=== PATIENT | female | born 1965 | race African-American/Black ===

== ENCOUNTER 2020-02-11 15:25 | Emergency (ER) | payer BC, SELFPAY ==
--- NOTE | ~2020-02-11 | XR_ITS ---
EXAMINATION: XR ankle RT min 3V DATE: 02/11/2020 15:51 INDICATION: Right ankle injury and swelling. TECHNIQUE: 4 views of right ankle were obtained. COMPARISON: None. FINDINGS: There is an oblique fracture of distal fibula with anteromedial aspect of the fracture line at the level of the tibial plafond. The distal fracture fragment demonstrates 2 mm posterolateral di splacement. Joint spaces are normal. There are enthesophytes at the posterior and plantar aspects of calcaneal tuberosity. There is ankle soft tissue swelling. IMPRESSION: 1. Oblique fracture of distal fibula. Reviewed, dictated and finalized at location A. LIER MANAGER
[2020-02-11 15:52] VITALS: BP 131/70; PULSE 64; RESP 16; TEMP 36.4; O2SAT 99
--- NOTE | 2020-02-11 15:58 | ED.LOWEXIN ---
HPI - Extremity Injury (Lower) General Chief Complaint: Extremity Injury, Lower Stated Complaint: right ankle pain Time Seen by Provider: 02/11/20 15:58 Source: patient and RN notes reviewed Mode of arrival: ambulatory Limitations: no limitations History of Present Illness HPI Narrative: 54 year old female [facility] with complaints of injury to her right ankle which occurred on Tuesday evening when she fell and landed on right ankle when she went roller skating. Patient states that she is having quite a bit of pain to her right lateral ankle, swelling and ecchymosis around entire ankle with swelling also to foot. Patient states that her pain is 9/10 is aching, burning and throbbing. Patient has strong pedal pulse to her right foot, foot is warm to touch. MD complaint: ankle injury Onset (ago): day(s) (3) Injury: Right: ankle (lateral) Type of Injury: other (twisted and fell) Place: other (skating rink) Severity: severe Severity scale (1-10): 9 Exacerbating factors: weight bearing and movement Context: fall Associated symptoms: swelling and able to partially bear weight Other symptoms: none Treatments prior to arrival: NSAIDS Related Data Allergies Allergy/AdvReac Type Severity Reaction Status Date / Time No Known Allergies Allergy Verified 02/11/20 15:53 Review of Systems Review of Systems: Narrative: CONSTITUTIONAL: Denies fever, chills, or sweats. EYES: Denies visual changes, redness, or discharge. ENT: Denies rhinorrhea, congestion, sore throat, or otalgia. CARDIOVASCULAR: Denies chest pain, palpitations, or edema. RESPIRATORY: Denies cough or dyspnea. GASTROINTESTINAL: Denies abdominal pain, nausea, vomiting, or diarrhea. GENITOURINARY: Denies dysuria or hematuria. SKIN: Denies rash or itching. MUSCULOSKELETAL: Denies back pain, positive for right lateral ankle pain with swelling, pain and ecchymosis to right lower leg and foot. Patient denies any tingling or numbness to her right foot with strong pedal and posterior pedal pulses present. or myalgia. NEUROLOGIC: Denies headache, numbness, or weakness. PSYCHIATRIC: Denies anxiety or depression. All systems reviewed & are unremarkable except as noted in HPI and below PMFSH Past Medical History Medical History (Updated 02/11/20 @ 19:40 by Yvonne Bruce NP) Post-menopausal Surgical History Surgical History (Updated 02/11/20 @ 19:40 by Yvonne rBuce NP) History of tonsillectomy Family History Family History (Updated 02/11/20 @ 19:41 by Yvonne Bruce NP) Father Hypertension Diabetes mellitus Mother Hypertension Social History Social History (Updated 02/11/20 @ 19:39 by Yvonne Bruce NP) Smoking status: Never smoker Alcohol intake: current Alcohol use details: social Substance use: never Living arrangements: with family Gender identity (if verbalized by the patient): Female Comments At time of signature, agree with nursing past medical, surgical, social and family history. There is no relevant family history pertinent to the presenting complaint Exam Narrative: Exam Narrative: GENERAL: Well-appearing, well-nourished, and in no acute distress. HEAD: Normocephalic, atraumatic. EYES: PERRLA and EOMI. ENT: Nares clear, no rhinorrhea or epistaxis. Mucous membranes moist. NECK: Supple.no lymphadenopathy CHEST: Clear to auscultation. No respiratory distress.SAO2 99% on room air. HEART: Regular rate and rhythm. No murmur heard. Normal peripheral pulses. ABDOMEN: Soft, nontender, nondistended, normal active bowel sounds. EXTREMITIES: Normal range of motion. with exception to right ankle with swelling, pain and ecchymosis to right lower leg and foot. Patient denies any tingling or numbness to her right foot with strong pedal and posterior pedal pulses present. or myalgia. SKIN: Warm, dry, no rash. NEURO: No focal deficits. Alert and oriented x3. Course Vital Signs Vital signs: Vital Signs Temperature
--- NOTE | 2020-02-11 16:26 | PC.NURSE ---
short leg OCL posterior applied, pedal pulse is 3+ post slpint. crutches set up and teaching done.
== END 2020-02-11 17:09 | disposition home or self-care (01) ==
PROVIDERS: Emergency Provider Registered Nurse; PCP Internal Medicine
DX: M25.571 Pain in right ankle and joints of right foot (principal); S82.831A Other fracture of upper and lower end of right fibula, initial encounter for closed fracture; V00.121A Fall from non-in-line roller-skates, initial encounter
CPT/HCPCS: 29515; 73610; 99204; G0463

== ENCOUNTER 2020-09-13 16:33 | Emergency (ER) | payer BC, SELFPAY ==
--- NOTE | ~2020-09-13 | XR_ITS ---
EXAMINATION: XR chest 2V DATE: 09/13/2020 17:06 INDICATION: Shortness of breath. Fever. TECHNIQUE: Frontal and lateral views of the chest were obtained. COMPARISON: None. FINDINGS: There are patchy airspace opacities in the mid and lower lung zones. No pleural effusion or pneumothorax. The heart size is normal. IMPRESSION: 1. Patchy airspace opacities in the mid and lower lung zone suspicious for atypical pneumonia such as COVID-19 pneumonia. Reviewed, dictated and finalized at location A. IMPRESSION: 1. Patchy airspace opacities in the mid and lower lung zone suspicious for atyp ical pneumonia such as COVID-19 pneumonia.
[2020-09-13 16:43] VITALS: O2SAT 88
[2020-09-13 16:45] VITALS: BP 127/71; PULSE 94; RESP 18; TEMP 37.6; O2SAT 93
--- NOTE | 2020-09-13 17:07 | ED.SOB ---
HPI - SOB/Dyspnea General Chief Complaint: Upper Respiratory Infection Stated Complaint: Ear Pain Time Seen by Provider: 09/13/20 16:49 Source: patient and RN notes reviewed Mode of arrival: ambulatory Limitations: no limitations History of Present Illness HPI Narrative: Patient presents today complaining of 3-day history of shortness of breath and cough with fever intermittently, with a 1 week history of ear pain. Patient is currently on a course of Augmentin, Cipro drops, and Singulair for her symptoms, prescribed by her PCP, and started on 09/10/20. States symptoms are not improving. She is also been taking Tylenol and ibuprofen. No history of COPD or asthma. She is a non-smoker. MD elicited complaint: shortness of breath and cough Related Data Home Medications Medication Instructions Recorded Confirmed amoxicillin-pot clavulanate tablet 09/13/20 ciprofloxacin-dexamethasone drp 09/13/20 montelukast mg 09/13/20 Allergies Allergy/AdvReac Type Severity Reaction Status Date / Time No Known Allergies Allergy Verified 09/13/20 16:51 Review of Systems Review of Systems: CONSTITUTIONAL: Denies body aches, chills, or sweats. + Fever EYES: Denies visual changes, redness, or discharge. ENT: Denies rhinorrhea, congestion, sore throat. + Left ear pain CARDIOVASCULAR: Denies chest pain, palpitations, or edema. RESPIRATORY: + Cough, shortness of breath GASTROINTESTINAL: Denies abdominal pain, nausea, vomiting, or diarrhea. GENITOURINARY: Denies dysuria or hematuria. SKIN: Denies rash, itching, or wounds. MUSCULOSKELETAL: Denies back pain, joint pain, or myalgia. NEUROLOGIC: Denies headache, numbness, tingling, or weakness. PSYCH: Denies depression or anxiety. [facility] Past Medical History Medical History Post-menopausal Surgical History Surgical History History of tonsillectomy Family History Family History Father Hypertension Diabetes mellitus Mother Hypertension Social History Social History Alcohol intake: current Alcohol use details: social Substance use: never Gender identity (if verbalized by the patient): Female Comments At time of signature, I have reviewed and agree with nursing past medical, surgical, social and family history unless otherwise noted. Please see nursing chart for further information. There is no relevant family history pertinent to the presenting complaint Exam Narrative: GENERAL: Ill-appearing, well-nourished, and in no acute distress. HEAD: Normocephalic, atraumatic. EYES: EOMI. No redness or drainage. Conjunctivae normal. ENT: Mucous membranes pink and moist. Bilateral TMs normal. NECK: Normal AROM. Supple. No lymphadenopathy. CHEST: Obviously short of breath. Diminished bilaterally. HEART: Regular rate and rhythm. No murmur appreciated. Normal peripheral pulses. EXTREMITIES: Normal range of motion. No edema. SKIN: Warm, dry, no rash. Capillary refill normal. Normal skin turgor. NEURO: No focal deficits. Alert and oriented x3. Gait steady. PSYCH: Normal affect. No signs of depression or anxiety. Course Course Emergency Course: Patient refuses Covid testing. Discussed with patient that given her fever history, shortness of breath, low O2 sat, and examination, I feel very strongly that she has a high likelihood of having COVID-19. Patient refuses. She will consent for chest x-ray. 1720-discussed chest x-ray results with patient and the fact that she most likely has COVID-19. Patient again will not consent to Covid testing. I discussed with her that I would like to transfer her to the hospital for further evaluation and treatment given her low O2 sat, shortness of breath, and chest x-ray results. Patient states that s
--- NOTE | 2020-09-13 17:25 | PC.NURSE ---
This nurse offered patient Covid testing due to symptoms and length of symptoms. Pt refused to have testing completed. Pt reported having Covid vaccine, but is unable to produce vaccine records or produce dates (even month) when received. Pt appears ill at this time. Pt becomes increasingly SOB with exertion from triage room to room 4. Pt unable to answer why she is currently taking antibiotics.
== END 2020-09-13 17:25 | disposition left against medical advice (07) ==
LOC: EXPCOLL 16:36
PROVIDERS: Emergency Provider Nurse Practitioner; PCP Internal Medicine
DX: U07.1 COVID-19 (principal); J12.82 Pneumonia due to coronavirus disease 2019
CPT/HCPCS: 71046; 99213; G0463

== ENCOUNTER 2021-11-15 13:19 | Emergency (ER) | payer OTHER, BC, SELFPAY ==
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
[2021-11-15 13:29] VITALS: BP 134/73; PULSE 80; RESP 16; TEMP 36.4; O2SAT 99
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
== END 2021-11-15 14:59 | disposition home or self-care (01) ==
PROVIDERS: Emergency Provider Emergency Medicine
DX: S39.012A Strain of muscle, fascia and tendon of lower back, initial encounter (principal); V49.40XA Driver injured in collision with unspecified motor vehicles in traffic accident, initial encounter
CPT/HCPCS: 72072; 72100; 99283

== ENCOUNTER 2024-03-15 14:00 | Emergency (ER) | payer BC, SELFPAY ==
--- NOTE | ~2024-03-15 | XR_ITS ---
EXAMINATION: XR knee RT min 4V DATE: 03/15/2024 14:43 INDICATION: Posterior right knee pain. TECHNIQUE: 4 views of right knee were obtained. COMPARISON: None. FINDINGS: Alignment is normal. No fracture. There is mild tricompartmental osteoarthritis. There is d ystrophic calcification at medial collateral ligament. IMPRESSION: 1. Mild right knee osteoarthritis. Reviewed, dictated and finalized at location A. GENCY MEDICAL SERVICE COORDINATOR
[2024-03-15 14:14] VITALS: BP 144/97; PULSE 86; RESP 15; TEMP 37; O2SAT 99
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
== END 2024-03-15 15:05 | disposition home or self-care (01) ==
PROVIDERS: Emergency Provider Nurse Practitioner Family; PCP Internal Medicine
DX: M25.561 Pain in right knee (principal); M17.11 Unilateral primary osteoarthritis, right knee
CPT/HCPCS: 73564; 99213; G0463